=== PATIENT | female | born 1965 | race Caucasian/White ===

== ENCOUNTER 2025-03-19 06:40 | Emergency (ER) | payer MEDICAID, SELFPAY ==
[2025-03-19 06:42] VITALS: BMI 28.3
[2025-03-19 07:14] VITALS: BP 122/82; PULSE 71; RESP 18; TEMP 37.2; O2SAT 96
--- NOTE | 2025-03-19 07:41 | EDNOTE_ITS ---
Lower Extremity Injury RME/HPI General Chief Complaint: Hip Injury/Pain Stated Complaint: RIGHT HIP PAIN Time Seen by Provider: 03/19/25 07:41 Source: patient Arrival date/time: 03/19/25 06:40 Mode of arrival: wheelchair Limitations: no limitations RME / HPI RME / HPI Narrative: 59-year-old female presents to the ED with a complaint of pain to the right hip after moving furniture yesterday. complaint: hip injury Onset (ago): day(s) (2 days) Place: home Severity: moderate Severity scale (1-10): 5 Relieving factors: nothing Exacerbating factors: movement Context: other (Moving furniture) Associated symptoms: able to partially bear weight Other symptoms: none Related Data Home Medications ?Medication ?Instructions ?Recorded ?Confirmed lisinopril 20 1 tab PO QDAY 07/26/1802/22 mg-hydrochlorothiazide 25 mg tablet atorvastatin 10 mg tablet 10 mg PO QDAY 02/20/2102/22 sertraline 50 mg tablet 50 mg PO QDAY 02/20/2102/22 Previous Rx's ?Medication ?Instructions ?Recorded hydrocodone 5 mg-acetaminophen 325 1 tab PO BID PRN pa in #14 tabs 02/15/21 mg tablet hydrocodone 5 mg-acetaminophen 325 1 tab PO BID PRN pa in #6 tabs 03/03/23 mg tablet ibuprofen 600 mg tablet 600 mg PO Q6H #30 tabs 03/03 hydrocodone 5 mg-acetaminophen 325 1 tab PO BID PRN pa in #6 tabs 03/24/23 mg tablet ibuprofen 600 mg tablet 600 mg PO Q6H #30 tabs 03/24 cyclobenzaprine 10 mg tablet 10 mg PO HS #20 tabs 03/06 12/29 ibuprofen 600 mg tablet (IBU) 600 mg PO TID #30 tabs 0 03/19/25 Allergies Allergy/AdvReac Type Severity Reaction Status Date / Time cephalexin Allergy Severe Anaphylaxis Verified 03/19/25 06:41 propoxyphene Allergy Severe Anaphylaxis Verified 03/19/25 06:41 Review of Systems Constitutional Constitutional: Reports system reviewed and no additional complaints, except as documented Eyes Eyes: Reports system reviewed and no additional complaints, except as documented, Denies dry eyes, Denies exophthalmos and Reports floaters Cardiovascular Cardiovascular: Denies chest pain with activity and Denies claudication ED Exam General Limitations: Present no limitations General appearance: Present alert and in no apparent distress Head Head exam: Present atraumatic Eye Eye exam: Present normal appearance and EOMI ENT ENT exam: Present normal exam, normal oropharynx and mucous membranes moist Neck Neck exam: Present normal inspection, full ROM and trachea midline Extremities Exam Extremities exam: Present normal inspection, full ROM and other (The right lower extremity at the hip is with decreased range of motion and that patient is not able to internally or externally rotate the hip. Flexion is decreased as well as extension. Note that the patient was examined while sitting in a wheelchair as she was not able to fully stand up on her f) Back Exam Back exam: Present normal inspection and full ROM Neurological Exam Neurological exam: Present alert and oriented X3 Psychiatric Psychiatric exam: Present normal affect and normal mood Skin Skin exam: Present warm, dry, intact and normal color Course Course Course Narrative: Patient will have a right hip x-ray and 30 mg of Toradol IM. Quality Measures none (NA) Orders Category Date Time Status XR hip RT w pelvis 2-3V Stat Exams 03/19/25 07:46 Completed Ketorolac Inj [Toradol Inj] Med 03/19/25 07:46 Discontinued 30 mg IM X1 ONE Vital Signs Vital signs: Vital Signs Temperature 98.9 F 03/19/25 07:14 Pulse Rate 71 03/19/25 07:14 Respiratory Rate 18 03/19/25 07:14 Blood Pressure 122/82 03/19/25 07:14 Pulse Oximetry (%) 96 03/19/25 07:14 Oxygen Delivery Method Room Air 03/19/25 07:14 Pulse ox room air is 96% Extremity Injury, Lower MDM Narrative MDM Narrative:: Patient will be made aware of her x-ray results and she will be discharged in no apparent distress. Patient tells me the Toradol injection helped her only mildly. She is to follow-up primary care physician within 1 week of today's date and she will have a work note. Patient data External records reviewed:: Other (specify) (NA) Clinical information provided by:: patient Social determinants that could affect healthcare access:: none (NA) Patient has the following chronic illnesses:: NA How is presenting disease/condition affected by chronic disease/condition?: no chronic disease (NA) Evaluation data The following diagnostics were reviewed and interpreted by me:: radiology exam(s) Lab and/or radiology exams considered but not ordered:: NA Interpretation Summary: NA Medications / Prescriptions Medications or Prescriptions considered but not ordered:: NA Medication administrations:: Medication Administration History Discontinued Medications Ketorolac Tromethamine (Ketorolac Inj 60 Mg/2 Ml Vial) 30 mg IM X1 ONE Stop: 03/19/25 07:47 Last Admin: 03/19/25 07:52 Dose: 30 mg Documented By: ARF DONE Consultations Consultation(s) initiated? (list below): No Diagnosis Extremity Injury, Lower Differential Diagnosis: acute internal derangement of knee, fracture of femur and fracture of hip Most likely diagnosis given after review of the tests above:: NA Admission Indicated Admission indicated?: not indicated Explain why admission is indicated or not indicated:: NA Admission Request Was there a request for admission?: No Admission Attestation Admission request attestation: NA Disposition Plan Disposition Plan: Discharge Discharge Attestation Discharge Attestation: The patient and all family members were given an opportunity to ask questions and understood the discharge instructions. Discharge instructions specifically effects, indications for sooner follow up or return to the emergency department, and the expected course of current diagnosis. Patient condition: Stable Discharge Plan Plan Patient Disposition: HOME (Self Care) Discharge Disposition comment: Discharge in no apparent distress Patient condition on transfer: Stable Prescriptions/Referrals Prescriptions/Med Rec: New ibuprofen [IBU] 600 mg tablet 600 mg PO TID Qty: 30 0RF cyclobenzaprine 10 mg tablet 10 mg PO HS Qty: 20 0RF No Action lisinopril-hydrochlorothiazide 20-25 mg Tablet 1 tab PO QDAY hydrocodone-acetaminophen 5-325 mg tablet 1 tab PO BID MDD 4 PRN (Reason: pain) Qty: 14 0RF atorvastatin 10 mg tablet 10 mg PO QDAY Patient Comments: TAKE 1 TABLET BY MOUTH ONCE DAILY AT BEDTIME FOR 90 DAYS sertraline 50 mg tablet 50 mg PO QDAY Patient Comments: TAKE 1 TABLET BY MOUTH ONCE DAILY FOR 90 DAYS hydrocodone-acetaminophen 5-325 mg tablet 1 tab PO BID MDD 10 PRN (Reason: pain) Qty: 6 0RF ibuprofen 600 mg tablet 600 mg PO Q6H Qty: 30 0RF hydrocodone-acetaminophen 5-325 mg tablet 1 tab PO BID MDD 10 PRN (Reason: pain) Qty: 6 0RF ibuprofen 600 mg tablet 600 mg PO Q6H Qty: 30 0RF Referrals: Jaspreet Denney MD [Primary Care Provider] - In 1 week Problem List Clinical Impression: Hip strain Patient/Caregiver Discharge Instructions Education Materials: ED Hip Strain Print Language: [place] Stand Alone Forms: [employer] Award Info., Work/School Release, Patient Portal Info Letter PA/BEHAVIORAL INSTRUCTOR Supervising Physician PA/BEHAVIORAL INSTRUCTOR Supervising Physician: EVERARDO
--- NOTE | 2025-03-19 07:46 | XR_ITS ---
Examination:Right hip AP, lateral, AP pelvis 3 views Technique: Hip AP lateral, AP pelvis, 3 views Exam date and time:March 19, 2025, 0803 hours INDICATIONS: Right hip pain today. FINDINGS: Mild bilateral hip osteoarthritis. No right fracture or dislocation Left hip intact IMPRESSION: Mild bilateral hip osteoarthritis
[2025-03-19] MEDS: KETOROLAC INJ 60 MG/2 ML VIAL 30 MG IM (07:52)
== END 2025-03-19 09:32 | disposition home or self-care (01) ==
PROVIDERS: Emergency Provider Emergency Medicine; PCP Family Medicine
DX: S76.011A Strain of muscle, fascia and tendon of right hip, initial encounter (principal); X58.XXXA Exposure to other specified factors, initial encounter
CPT/HCPCS: 73502; 96372; 99283; J1885